=== PATIENT | male | born 1960 | race African-American/Black ===

== ENCOUNTER 2017-06-14 21:02 | Emergency (ER) | payer MEDICARE ==
[~2017-06-14 21:02] MED LIST: GASTROGRAFIN 30 ML BOT ONE
--- NOTE | 2017-06-14 23:19 | RAD ---
KUB: HISTORY: Gastrostomy tube evaluation. FINDINGS: Contrast has been injected into a PEG tube and confirms the PEG tube position within the stomach. Th ere is emptying into the duodenum. IMPRESSION: Percutaneous endoscopic gastrostomy tube in the stomach. No extravasation. POS: [facility]
== END 2017-06-14 23:30 | disposition home or self-care (01) ==
LOC: ERS 21:02
DX: Z43.1 Encounter for attention to gastrostomy (principal); I25.2 Old myocardial infarction; I69.351 Hemiplegia and hemiparesis following cerebral infarction affecting right dominant side; G47.30 Sleep apnea, unspecified; I48.91 Unspecified atrial fibrillation; I13.0 Hypertensive heart and chronic kidney disease with heart failure and stage 1 through stage 4 chronic kidney disease, or unspecified chronic kidney disease; N18.4 Chronic kidney disease, stage 4 (severe); I50.9 Heart failure, unspecified; E78.5 Hyperlipidemia, unspecified; F41.9 Anxiety disorder, unspecified
CPT/HCPCS: 43760; 74018

== ENCOUNTER 2017-10-26 09:08 | Emergency (ER) | payer MEDICARE ==
[2017-10-26 09:54] LABS: #Eosinphils 0.1 thou/uL (0.0-0.7); #Lymphocytes 1.3 thou/uL (1.20-3.40); #Neutrophils 7.6 thou/uL (1.40-6.50); %Basophils 0.2 % (0.0-1.0); %Eosinophils 1.4 % (0.0-10.0); %Lymphocytes 13.2 % (21.0-51.0); %Monocytes 9.9 % (0.0-10.0); %Neutrophils 75.2 % (42.0-75.0); Hemoglobin 14.1 g/dL (14.0-18.0); Mean Corpuscular HGB CONC 32.3 g/dL (32.0-36.0); Mean Corpuscular Hemoglobin 33.4 pg (27.0-31.0); Mean Platelet Volume 8.6 fL (7.4-10.4); Platelet Count 273 thou/uL (130-400); RBC Distribution Width 12.5 % (11.5-14.5); Red Blood Cell (RBC) Count 4.24 mill/uL (4.70-6.10); White Blood Cell (WBC) Count 10.1 thou/uL (4.8-10.8)
[2017-10-26 09:56] LABS: INR-International Normal Ratio 1.4; Prothrombin Time 17.2 SEC (12.0-14.7)
[2017-10-26 09:57] LABS: PTT 40.7 SEC (22.9-36.1)
[2017-10-26 10:13] LABS: ALT (SGPT) 14 U/L (8-55); AST (SGOT) 18 U/L (5-34); Albumin 3.5 g/dL (3.5-5.0); Alkaline Phosphatase 109 U/L (40-150); Anion Gap 13 mmol/L (10-20); BUN (Urea Nitrogen) 16 mg/dL (8.4-25.7); Bilirubin, Total 0.8 mg/dL (0.2-1.2); Calc. Creatinine Clearance 0 mL/min (70-130); Calcium 8.8 mg/dL (7.8-10.44); Carbon Dioxide 27 mmol/L (22-29); Chloride 106 mmol/L (98-107); Estimated GFR-MDRD 63; Globulin 3.6 g/dL (2.4-3.5); Glucose 108 mg/dL (70-105); Potassium 4.1 mmol/L (3.5-5.1); Protein, Total 7.1 g/dL (6.0-8.3); Sodium 142 mmol/L (136-145)
[2017-10-26 10:17] LABS: CKMB 0.9 ng/mL (0-6.6)
--- NOTE | 2017-10-26 10:29 | CT ---
CT BRAIN WITHOUT CONTRAST ENHANCEMENT: HISTORY: Left-sided facial droop. History of CVA that affected the right side in the past. FINDINGS: A large, old left middle cerebral artery infarct is noted. Extensive decreased attenuation and encep halomalacia change involving the left middle cerebral artery territory. Basal ganglia calcifications are seen. An old appearing right thalamic infarct is seen. No signs of intracerebral hemorrhage or extraaxial fluid collection. The mastoid air cells are clear. The visualized sinuses are clear. IMPRESSION: 1. Old left middle cerebral artery infarct. 2. No acute intracranial abnormalities. Findings telephoned to Dr. Marte at 0916 hours. CODE CR POS: [facility]
--- NOTE | 2017-10-26 11:36 | RAD ---
PORTABLE AP CHEST XRAY: DATE: 10/26/17. HISTORY: Cough. COMPARISON: 05/19/09. FINDINGS: There has been interval placement of a single-lead left subclavian AICD device. Tracheostomy device is also now noted in place. Cardiac silhouette is magnified by projection but does appear mildly enl arged. The pulmonary vasculature is within normal limits. There is a remote fracture involving the posterior right 5th rib. Degenerative changes are present in the spine. Thoracic aorta is ectatic. No other interval change. IMPRESSION: 1. Mild cardiomegaly without overt congestive heart failure. 2. No acute cardiopulmonary process. 3. Remote right-sided rib fracture. POS: [facility]
--- NOTE | 2017-10-30 12:23 | EKG ---
Test Reason : Blood Pressure : / mmHG Vent. Rate : 071 BPM Atrial Rate : 071 BPM P-R Int : 204 ms QRS Dur : 080 ms QT Int : 422 ms P-R-T Axes : 033 028 168 degrees QTc Int : 458 ms Normal sinus rhythm Abnormal ECG Confirmed by IZZY REA ([id number]), commercial production editor JOSE MIGUEL ASCENCIO ([id number]) on 10/30/2017 12:23:24 PM Referred By: Confirmed By:IZZY REA
== END 2017-10-26 13:30 | disposition home or self-care (01) ==
LOC: ERS 09:08
DX: R25.9 Unspecified abnormal involuntary movements (principal); I25.2 Old myocardial infarction; Z86.73 Personal history of transient ischemic attack (TIA), and cerebral infarction without residual deficits; G47.30 Sleep apnea, unspecified; I10 Essential (primary) hypertension; I48.91 Unspecified atrial fibrillation; D64.9 Anemia, unspecified; E78.5 Hyperlipidemia, unspecified; F41.9 Anxiety disorder, unspecified; Z79.899 Other long term (current) drug therapy
CPT/HCPCS: 36415; 36416; 70450; 71045; 80053; 80164; 80177; 80185; 82553; 84484; 85025; 85610; 85730; 93005

== ENCOUNTER 2019-02-07 09:38 | Emergency (ER) | payer MEDICAID, MEDICARE, OTHER | END 2019-02-07 12:13 | disposition home or self-care (01) | LOC: ERS 09:38 | DX: K94.23 Gastrostomy malfunction (principal); I25.2 Old myocardial infarction; I10 Essential (primary) hypertension; I48.91 Unspecified atrial fibrillation; E78.5 Hyperlipidemia, unspecified; F41.9 Anxiety disorder, unspecified | CPT/HCPCS: 43762; B4087 ==